=== PATIENT | male | born 1960 | race Caucasian/White ===

== ENCOUNTER 2023-10-05 14:14 | Emergency (ER) | payer MEDICAID ==
[~2023-10-05] VITALS: Ht 167.6 cm; Wt 82.0 kg
[2023-10-05 14:17] VITALS: BP 158/92; PULSE 102; RESP 16; TEMP 98.7; O2SAT 100
== END 2023-10-05 23:42 | disposition left against medical advice (07) ==
LOC: ER 14:14
DX: R51.9 Headache, unspecified (principal); Z53.21 Procedure and treatment not carried out due to patient leaving prior to being seen by health care provider
CPT/HCPCS: 99281